=== PATIENT | female | born 2000 | race Caucasian/White ===

== ENCOUNTER → 2019-11-19 | Outpatient (CLI) | payer BC | LOC: ZCOL.LAB 15:41 | DX: U07.1 COVID-19 (principal) ==

== ENCOUNTER → 2020-01-28 | Outpatient (CLI) | payer BC | LOC: COL.VAS 13:49 | DX: R00.2 Palpitations (principal); R94.31 Abnormal electrocardiogram [ECG] [EKG]; Z86.19 Personal history of other infectious and parasitic diseases ==

== ENCOUNTER → 2021-03-14 | Outpatient (CLI) | payer BC | LOC: MC.RAD 07:51 | DX: N63.20 Unspecified lump in the left breast, unspecified quadrant (principal) ==